=== PATIENT | female | born 1995 | race African-American/Black ===

== ENCOUNTER 2017-09-17 15:28 | Emergency (ER) | payer SELFPAY ==
[~2017-09-17] VITALS: Ht 160 cm; Wt 60.0 kg
[2017-09-17 15:31] VITALS: BP 116/75
[2017-09-17] MEDS ORDERED: HYDROCODONE/ACETAMINOPHEN 5/325MG TABLET PO ONE (16:30)
[2017-09-17] MEDS ORDERED: KETOROLAC 60MG/2ML VIAL IM ONE (16:30)
== END 2017-09-17 21:18 | disposition home or self-care (01) ==
LOC: ER 16:09
DX: S83.92XA Sprain of unspecified site of left knee, initial encounter (principal); W17.89XA Other fall from one level to another, initial encounter; Y93.89 Activity, other specified; Y92.89 Other specified places as the place of occurrence of the external cause; Y99.8 Other external cause status
CPT/HCPCS: 73502; 73562; 81025; 96372; 99284; J1885; L1830

== ENCOUNTER 2018-01-09 00:48 | Emergency (ER) | payer MEDICAID ==
[~2018-01-09] VITALS: Ht 165.1 cm; Wt 75.0 kg
[2018-01-09] MEDS ORDERED: HALOPERIDOL LACTATE 5MG/ML VIAL IM ONE (01:00)
[2018-01-09] MEDS ORDERED: OLANZAPINE 10MG TABLET ODT PO ONE (01:00)
[2018-01-09] MEDS ORDERED: LORAZEPAM 2MG/ML CPJ IM ONE (01:15)
[2018-01-09 01:24] LABS: BASOPHILS % 0.7 % (0.0-2.0); EOSINOPHILS % 0.3 % (0.0-5.0); HEMATOCRIT. 35.9 % (42.0-52.0); HEMOGLOBIN. 12.5 g/dL (14.0-18.0); MEAN CORPUSCULAR HEMOGLOBIN 29.6 pg (28.0-32.0); MEAN CORPUSCULAR VOLUME 84.9 fL (80.0-94.0); MEAN PLATELET VOLUME 7.1 fl (7.4-10.4); MONOCYTES % 12.5 % (2.0-8.0); NEUTROPHILS % 57.5 % (40.0-76.0); PLATELET 330 x1000/uL (130-400); RED BLOOD CELL COUNT 4.23 mill/uL (4.7-6.1); RED CELL DISTRIBUTION WIDTH 13.2 % (11.6-14.6)
[2018-01-09 01:35] LABS: CHLORIDE 106 mEq/L (98-107)
[2018-01-09 01:40] LABS: ETHANOL BLOOD < 10 mg/dL
[2018-01-09 02:59] LABS: CLARITY URINE CLEAR (CLEAR); COLOR URINE YELLOW (YELLOW); KETONES URINE 1+ (NEGATIVE); LEUKOCYTE ESTERASE URINE NEGATIVE (NEGATIVE); NITRITE URINE NEGATIVE (NEGATIVE); OCCULT BLOOD URINE NEGATIVE (NEGATIVE); PROTEIN URINE NEGATIVE (NEGATIVE); SPECIFIC GRAVITY URINE 1.011 (1.005-1.030); UROBILINOGEN URINE 0.2 E.U./dL (0.2-1.0)
[2018-01-09 03:34] LABS: *AMPHETAMINES SCREEN URINE PRESUMTIVE POSITIVE (NEGATIVE); *BARBITURATES SCREEN URINE NEGATIVE (NEGATIVE); *BENZODIAZEPINES SCREEN URINE NEGATIVE (NEGATIVE); *COCAINE SCREEN URINE NEGATIVE (NEGATIVE); CANNABINOID URINE SCREEN PRESUMTIVE POSITIVE (NEGATIVE); METHADONE URINE SCREEN NEGATIVE (NEGATIVE); OPIATES URINE SCREEN NEGATIVE (NEGATIVE); PHENCYCLIDINE URINE SCREEN NEGATIVE (NEGATIVE)
[2018-01-09] MEDS ORDERED: POTASSIUM CHLORIDE 20MEQ TABLET SR PO NR (04:30)
[2018-01-09 10:40] VITALS: BP 95/68
== END 2018-01-09 10:46 | disposition home or self-care (01) ==
LOC: ER 00:48
DX: F15.10 Other stimulant abuse, uncomplicated (principal); F12.10 Cannabis abuse, uncomplicated; E87.6 Hypokalemia; E87.2 Acidosis; D64.9 Anemia, unspecified; J45.909 Unspecified asthma, uncomplicated; Z78.1 Physical restraint status
CPT/HCPCS: 36415; 80053; 80305; 80307; 80329; 81003; 85025; 96372; 99284; G0482; J1630; J2060; Z7610